=== PATIENT | male | born 1940 | race Caucasian/White ===

== ENCOUNTER 2022-11-15 11:25 | Outpatient (CLI) | payer OTHER, SELFPAY | END 2022-11-15 11:26 | disposition home or self-care (01) | LOC: OP CLINIC 11:26 | PROVIDERS: PCP Family Medicine; Visit Provider Internal Medicine Gastroenterology | DX: D50.9 Iron deficiency anemia, unspecified (principal); K29.70 Gastritis, unspecified, without bleeding; D17.5 Benign lipomatous neoplasm of intra-abdominal organs | CPT/HCPCS: 43239; 45378; 88305; 99153; J2250; J3010 ==

== ENCOUNTER 2023-11-15 00:58 | Emergency (ER) | payer OTHER, SELFPAY ==
[2023-11-15 01:02] VITALS: BP 114/76; PULSE 86; RESP 16; TEMP 36.4; O2SAT 95; BMI 29.2
--- NOTE | 2023-11-15 01:51 | CRLHL7_ITS ---
For Patients: As a result of the Century Cures Act, medical imaging exams and procedure reports are released immediately into your electronic medical record. You may view this report before your referring provider. If you have questions, please contact your health care provider. INDICATION: Trauma, fall. TECHNIQUE: CT head without contrast. COMPARISON: None. FINDINGS: CSF spaces: Proportionate prominence of the ventricles and sulci, reflecting moderate generalized cerebral volume loss. Brain parenchyma: The lopez-white differentiation is maintained. Patchy white matter low attenuation changes, nonspecific but likely reflecting chronic small vessel ischemic disease. No sign of mass, hemorrhage, or midline shift. Skull base and calvarium: The visualized paranasal sinuses and mastoid air cells demonstrate no acute or significant findings. Bilateral lens thinning. No skull fractures. IMPRESSION: No acute intracranial abnormality. Please note that all CT scans at this facility use dose modulation, iterative reconstruction, and/or weight-based dosing when appropriate to reduce radiation dose to as low as reasonably achievable. Dictated by Juan Luis Dc MD @ 11/15/2023 3:32:16 AM (Electronically Signed)
--- NOTE | 2023-11-15 01:51 | CRLHL7_ITS ---
For Patients: As a result of the Century Cures Act, medical imaging exams and procedure reports are released immediately into your electronic medical record. You may view this report before your referring provider. If you have questions, please contact your health care provider. INDICATION: Syncope. Back and right flank pain. TECHNIQUE: CT chest without contrast and CTA chest, abdomen, and pelvis acquired with 95 cc Isovue 370 IV contrast, dissection protocol. 2D and 3D MIP images for post-processing were performed and interpreted on an independent workstation, and 3D images were permanently archived. COMPARISON: None. FINDINGS: CHEST: Cardiovascular structures: The unenhanced images demonstrate no evidence of aortic intramural hematoma. There is no sign of aortic dissection. Fusiform dilatation of the descending thoracic aorta measuring 4.7 cm. Heart size is normal. Pulmonary artery is normal in caliber. Mediastinum and mckenzie: No mass or adenopathy. Lungs and pleura: Minimal dependent atelectasis. No acute infiltrates. Few scattered sub-6 mm pulmonary nodules. No pleural effusions or pneumothorax. Chest wall and axilla: No mass or adenopathy. Bones: Degenerative changes. ABDOMEN AND PELVIS: Liver: Unremarkable. Gallbladder and bile ducts: Unremarkable. Spleen: Unremarkable. Adrenal glands: Unremarkable. Pancreas: Unremarkable. Kidneys: Left renal cyst. No stones or hydronephrosis. GI tract: Unremarkable. Lymph nodes: Unremarkable. Vascular structures: Unremarkable. Miscellaneous: Fat containing inguinal hernias. No free air or significant free fluid. Pelvic organs: Mild prostatomegaly. Bones: Degenerative changes. IMPRESSION: 1. Descending thoracic aortic aneurysm measuring 4.7 cm. 2. No evidence of aortic dissection or intramural hematoma. 3. No acute abnormality of the chest, abdomen, or pelvis. Please note that all CT scans at this facility use dose modulation, iterative reconstruction, and/or weight-based dosing when appropriate to reduce radiation dose to as low as reasonably achievable. Dictated by Juan Luis Dc MD @ 11/15/2023 3:42:56 AM (Electronically Signed)
--- NOTE | 2023-11-15 01:51 | CRLHL7_ITS ---
For Patients: As a result of the Century Cures Act, medical imaging exams and procedure reports are released immediately into your electronic medical record. You may view this report before your referring provider. If you have questions, please contact your health care provider. INDICATION: Trauma, fall. TECHNIQUE: CT cervical spine without contrast. COMPARISON: None. FINDINGS: Vertebrae: Straightening of the normal cervical lordosis, which may be due to muscle spasm or positioning. Degenerative trace anterolisthesis C3 on C4 and C4 on C5. There are no fractures or suspicious bony lesions. Discs and facet joints: There are degenerative disc changes most severe at C6-C7. There are multilevel degenerative changes in the facets. Extraspinal findings: Paraspinous soft tissues are unremarkable. IMPRESSION: 1. No acute fracture or traumatic subluxation of the cervical spine. 2. Multilevel degenerative spondylosis. Please note that all CT scans at this facility use dose modulation, iterative reconstruction, and/or weight-based dosing when appropriate to reduce radiation dose to as low as reasonably achievable. Dictated by Juan Luis Dc MD @ 11/15/2023 3:35:24 AM (Electronically Signed)
--- NOTE | 2023-11-15 02:06 | ED.GENADULT ---
HPI - General Adult General Date Seen: 11/15/23 Chief complaint: Fall/Minor Trauma Stated complaint: fall in bathroom, laceration back of head Time Seen by Provider: 11/15/23 01:27 History of Present Illness HPI narrative: this is an 83-year-old gentleman who presents to the ER today from his home with his . History is obtained in part from the patient, but since he is a man a very few words, is somewhat mentum by his . He has a past medical history of a recently diagnosed aortic aneurysm (without rupture) and a recent diagnosis of high cholesterol. He has a history of hearing loss and uses hearing aids. He is on atorvastatin, recently started, sildenafil for pulmonary hypertension, vitamins for his ups, but no other meds. No blood thinners. He does note that he was sick with a recent respiratory illness and cough for a couple of weeks that ended about a week ago. He is back to his normal state of health for the past several days. He has not had any ongoing sore throat, nasal congestion, cough, trouble breathing, nausea, vomiting, diarrhea, fever, or other symptoms. He has had normal appetite, normal intake, and normal behavior for the past several days. His notes that he always works hard to drink plenty of fluids and does not think he is dehydrated today. He was in the bathroom tonight at about midnight going to the bathroom. He was urinating. He does know what happened but he fell. was not with him but she heard a very loud Bang when he fell. She came to check him. He was on the floor the bathroom and had [facility] The contents inside the cabinet were in disarray because of the impact. He was initially conscious but when she tried to help him up he had a spell lasting less than a minute where he blacked out and was unresponsive. No seizure activity. He came to abruptly and was not confused. No postictal symptoms. since waking up he says he feels fine. His made him come in because he has a laceration on the occiput of his head. He also complains of some pain in the right flank/ right side of his low back. She notes that he fell into a fairly small space in the bathroom that his arms and legs were bent and fairly odd angles. It looks like he probably blacked out. He does not recall any antecedent chest pain, palpitations, shortness of breath, headache or any other symptoms leading up to the fall. He thinks he can remember falling and hitting the cabinet. He does not remember details after that. based on the circumstances, we do not think that he tripped, but we do not really know how he fell. He does have a mild headache. He has mild pain in his low back and mild achiness in both of his knees. No other complaints. No shortness of breath. No chest pain. no palpitations. Records through [facility] link CT angio chest 11/07/2023 FINDINGS: There is too much motion in the ascending aorta and aortic root to evaluate for a dissection. There is a small ascending aortic aneurysm measuring approximately 4.4 cm at the level of the main pulmonary artery. The transverse thoracic aorta is normal in caliber. The proximal descending thoracic aorta is also mildly aneurysmal measuring 4.4 cm. There is heterogeneous low-attenuation wispy debris anteriorly, which appears to be related to nonuniform contrast opacification. Medially in the more distal descending thoracic aorta, there is some mural thrombus. Inadequate opacification of the celiac artery, SMA and renal arteries. The proximal neck arteries appear patent. ? No central pulmonary artery embolism. No pericardial effusion or cardiomegaly. The thyroid and neck base appear unremarkable. No axillary, mediastinal or hilar lymphadenopathy. Cyst in the left kidney. Suboptimal evaluation of the lung parenchyma given significant motion artifact. There are mildly prominent lymph nodes in the right hilar and infrahilar peribronchial tissues, borderline enlarged measuring up to 1 cm in short axis. There is some volume loss pressure, with posterior ground-glass opacity, also limiting evaluation. Atelectasis also around the aorta. No acute-appearing focal airspace consolidation. ? IMPRESSION: 1. Mild ascending and proximal descending thoracic aortic aneurysm. 2. Low lung volumes, poorly evaluated lung parenchyma, and borderline enlarged right hilar and infrahilar lymph nodes. 3. No central pulmonary embolism. Related Data Home Medications Medication Instructions Recorded Confirmed atorvastatin 20 mg tablet 20 mg PO QPM 11/15/23 11/15/23 Allergies Allergy/AdvReac Type Severity Reaction Status Date / Time No Known Drug Allergies Allergy Verified 11/15/23 01:10 PFSH PFS Social History Non-prescribed substance use: denies use Exam Narrative: Exam Narrative: Constitutional: Appears well-developed and well-nourished. Alert. Conversant. Non toxic. HENT: Head: No depressed skull fracture, Racco[place] Eyes, Burrell's sign, or hemotympanum. Face normal. TMs normal There is a stellate laceration on the occiput of the scalp measuring[] cm total length. mild tenderness around the laceration without any palpable skull fracture or underlying hematoma. No visible foreign body. Nose: Nose normal. Mouth/Throat: Oral mucosa is clear and moist. no trismus. Pharynx normal. Tonsils symmetric. No tonsillar enlargement, erythema, or exudate. Eyes: Conjunctivae normal. EOM normal. Pupils equal, round, and reactive to light. No scleral icterus. Neck: Mild tenderness at the upper portion of the C-spine around the laceration. No definite bony crepitus or step-off.Normal range of motion. Neck supple. No tracheal deviation present. Cardiovascular: Normal rate, regular rhythm. No gallop. No friction rub. No murmur heard. Symmetric radial artery pulses Pulmonary/Chest: Effort normal. No stridor. No respiratory distress. No wheezes. No rales. No rhonchi . Very mild right lower rib and right flank tenderness. Abdominal: Soft. Bowel sounds normal. No distension. No mass. No tenderness. No rebound. No guarding. Musculoskeletal: No midline thoracic or lumbar spine tenderness or step-off. He is tender over the right flank. No bruising or abrasion there. RUE: Normal range of motion. No tenderness. No deformity LUE: Normal range of motion. No tenderness. No deformity RLE: Normal range of motion. No edema. No tenderness. No deformity LLE: Normal range of motion. No edema. No tenderness. No deformity Neurological: Alert and oriented to person, place, and time. Normal strength. CN II-VII intact. No sensory deficit. GCS eye subscore is 4. GCS verbal subscore is 5. GCS motor subscore is 6. Normal coordination Skin: Skin is warm and dry. No rash noted. No pallor. Normal capillary refill. Psychiatric: Normal mood. Normal affect. Const: Vital Signs, click to edit/add: Vital Signs - 24 hr 11/15/23 01:02 11/15/23 03:04 Temperature 97.6 F Pulse Rate [Pulse Oximeter] 86 80 Respiratory Rate 16 16 Blood Pressure [Ri t Upper Arm] 114/76 148/83 H Pulse Oximetry 95 96 Oxygen Delivery Me thod Room Air Room Air Course Vital Signs Vital signs: Initial Vital Signs Temperature 97.6 F 11/15/23 01:02 Temperature Source Temporal Artery Scan 11/15/23 01:02 Pulse Rate 86 11/15/23 01:02 Respiratory Rate 16 11/15/23 01:02 Blood Pressure 114/76 11/15/23 01:02 Blood Pressure Mean 88 11/15/23 01:02 Blood Pressure Position Sitting 11/15/23 01:02 Pulse Oximetry 95 11/15/23 01:02 Oxygen Delivery Method Room Air 11/15/23 01:02 Vital Signs Temperature 97.6 F 11/15/23 01:02 Pulse Rate 86 11/15/23 01:02 Respiratory Rate 16 11/15/23 01:02 Blood Pressure 114/76 11/15/23 01:02 Pulse Oximetry 95 11/15/23 01:02 Oxygen Delivery Method Room Air 11/15/23 01:02 Temperature 97.6 F 11/15/23 01:02 Pulse Rate 80 11/15/23 03:04 Respiratory Rate 16 11/15/23 03:04 Blood Pressure 148/83 H 11/15/23 03:04 Pulse Oximetry 96 11/15/23 03:04 Oxygen Delivery Method Room Air 11/15/23 03:04 Medications Administered Medications: Discontinued Medications Generic Name Dose Route Start Last Admin Trade Name Freq PRN Reason Stop Dose Admin Acetaminophen 1,000 mg 11/15/23 03:30 11/15/23 03:43 Acetaminophen 500 Mg Tablet PO 11/15/23 03:31 1,000 mg ONCE ONE Administration Sodium Chloride 500 mls @ 500 mls/hr 11/15/23 01:51 11/15/23 03:42 0.9 % Sodium Chloride 500 Ml IV 11/15/23 02:50 500 mls/hr .Q1H ONE Administration Lidocaine/Epinephrine 20 ml 11/15/23 01:51 11/15/23 03:43 Lidocaine 1%-Epi 1:100,000 20 Ml INFILTRATI 11/15/23 01:52 20 ml ONCE ONE Administration Medical Decision Making MDM Narrative Medical decision making narrative: This patient presents for evaluation of a He fell while urinating in the bathroom tonight. Exact cause of fall is unclear but we are highly suspicious that this was a syncopal event.. A broad differential was considered. History provided suggests a benign cause of syncope. No murmurs . Initial ECG shows normal sinus rhythm and no dysrhythmogenic abnormality such as WPW, prolonged QT, Brugada syndrome, and no ischemia. No symptoms/findings concerning for cardiac ischemia or ACS. EKG nonischemic and troponin normal.. No headache or other neurologic symptoms to suggest subarachnoid , stroke . No reported seizure-like activity or postictal phase. He does have a recent diagnosis of a thoracic aortic aneurysm. He has right flank pain here in the ER. CT scan aortic /trauma protocol was obtained. manager monitoring while the patient here in the ER showed no dysrhythmia or ectopy. A broad differential diagnosis was considered including SVT, Atrial fibrillation, ventricular arrhythmia, thyroid disease, acute electrolyte abnormality, drugs/medications, medication side effect, anemia ( Patient has very mild , stable anemia), heart disease, PE, among others. discussed with the patient are concerned that this could have been a cardiac cause of syncope. Risk factors would include age, known vascular disease with aortic aneurysm (even though he does not have any known previous history of coronary disease ). We discussed options for admission for further care workup, cardiac monitoring, inpatient echo. Also discussed potential for outpatient workup. Patient and his strongly prefer outpatient workup. Therefore they will follow up primary care provider to consider ordering Zio patch an echo. Precautions for return to the ER reviewed. Questions answered. he did have a laceration at the base of his skull/occipital scalp/ upper neck. It was repaired as noted above. It was fairly still a but came together nicely with simple interrupted stitches. Patient is up-to-date on tetanus. It is a clean, non contaminated wound. No visible foreign body or its of within splinters. Discussed wound care, infection precautions, need for follow-up for suture removal in 6-7 days ( next Tuesday). Precautions for return to the ER or follow-up reviewed. with signs of head injury were concerned about possible skull fracture or intracranial injury. Head CT is obtained and is fortunately normal. C-spine CT also normal. He did have pain in his right flank from the fall. Differential air included traumatic injury such as kidney injury, musculoskeletal pain, flank bruising. Also consider nontraumatic causes of flank pain such as rupture ring aortic aneurysm. With CT chest/ abdomen pelvis is obtained. It does demonstrate previously known aortic aneurysm without any signs of rupture or dissection. No other acute traumatic injury Or internal bleeding noted on CT. Urinalysis normal.. Suspect that is flank pain probably is musculoskeletal in nature. Lab Data Labs: Lab Results 11/15/23 11/15/23 Range/Units 02:04 02:50 WBC 6.90 (4.50-11.00) K/uL RBC 4.17 L (4.30-5.90) m/uL Hgb 12.8 L (13.5-17.5) gm/dL Hct 39.1 (37.0-53.0) % MCV 94 (80-100) fL MCH 31 (26-34) pg MCHC 33 (32-36) gm/dL RDW Coeff of Tonya 13.4 (11.5-15.5) % Plt Count 217 (140-440) K/uL Neut % (Auto) 69.9 (42.0-72.0) % Lymph % (Auto) 19.0 L (20-44) % Cross % (Auto) 8.1 (0.0-11.0) % Eos % (Auto) 2.3 (0.0-7.0) % Baso % (Auto) 0.4 (0.0-3.0) % Neut # (Auto) 4.82 (1.7-7.0) K/uL Lymph # (Auto) 1.30 (0.90-2.90) K/uL Cross # (Auto) 0.60 (0.00-0.90) K/UL Eos # (Auto) 0.16 (0.00-0.50) K/uL Baso # (Auto) 0.03 (0.00-0.30) K/uL Abs Immat Gran (auto) 0.02 (0.00-0.30) K/uL Imm/Tot Granulo (auto) 0.3 % Sodium 140 (135-149) mmol/L Potassium 4.3 (3.6-5.1) mmol/L Chloride 106 (96-114) mmol/L Carbon Dioxide 24 (20-32) mmol/L Anion Gap 10 (7-15) mEq/L BUN 22 (7-30) mg/dL Creatinine 1.2 (0.5-1.5) mg/dL Estimated Creat Clear 51.19 Estimated GFR 60 ml/min Glucose 116 H (60-115) mg/dL Lactate 1.1 (0.5-1.9) mmol/L Calcium 9.3 (8.4-10.6) mg/dL Troponin I < 0.01 L (0.01-0.04) ng/mL Urine Color Yellow (Yellow) Urine Appearance Clear (Clear) Urine pH 5.5 (5.0-8.5) Ur Specific [place] 1.010 (1.000-1.030) Urine Protein Negative (Negative) Urine Glucose (UA) Negative (Negative) Urine Ketones Negative (Negative) Urine Blood Negative (Negative) Urine Nitrite Negative (Negative) Urine Bilirubin Negative (Negative) Urine Urobilinogen 0.2 (0.2-1.0) Ur Leukocyte Esterase 1+ A (Negative) Urine RBC 0-2 (0-2) Urine WBC 2-5 (0-5) Ur Squamous Epith Cells Few (None-Few) Amorphous Sediment Few A (None) Urine Bacteria Few A (None) Imaging Data CT Chest/Ab/Pelvis: Attestation: I have reviewed the pertinent imaging results. Radiologist's impression: IMPRESSION: No acute cardiopulmonary abnormality. CT scan - head: Attestation: I have reviewed the pertinent imaging results. Radiologist's impression: IMPRESSION: No acute intracranial abnormality. CT C spine: Attestation: I have reviewed the pertinent imaging results. Radiologist's impression: IMPRESSION: 1. No acute fracture or traumatic subluxation of the cervical spine. 2. Multilevel degenerative spondylosis. ECG Data Attestation: I personally reviewed and interpreted this ECG as follows: Interpretation: Normal sinus rhythm rate 75 OK 156 QRS axis normal axis ST segment/T wave: no ST segment elevation or depression QTc: 444. No Brugada syndrome. No [id number]. Discharge Plan Discharge Clinical Impression: Acute flank pain, Syncope, Laceration of scalp Patient Disposition: Home, Self-Care Condition: Stable Instructions: Laceration (ED), Syncope (DC) Additional Instructions: please follow-up with your regular doctor within 6-7 days to remove the stitches in your scalp. If you can get him with your regular doctor, come back to the urgent care or ER to have the stitches removed. Clean the wound gently once per day. Apply antibiotic ointment every day. Monitor for signs of infection such as redness, swelling or pus. If you have any concerns for infection or other problem, come back to the ER right away. If you have any further dizzy spells or fainting spells return to the ER immediately. As we discussed, it is not clear based on your workup why you fell tonight. We are concerned that this may have been a cardiac arrhythmia or other heart problem. Please follow-up with your doctor to have further testing with an outpatient heart monitor and echocardiogram. Prescriptions: No Action atorvastatin 20 mg tablet 20 mg PO QPM Follow Up/Referrals: Jose Francisco Echavarria MD [Primary Care Provider] - Stand Alone Forms: [facility] Info Instructions Procedures Laceration Occipital scalp/posterior neck: Verification/time out: correct patient and correct site Site: scalp ( is a somewhat stellate laceration shaped like an inverted T or an [place]. Total length approximately 3 cm.) Description: stellate Depth: simple, single layer Local Anesthetic: lidocaine 1% and with epi Amount of anesthesia used (mL): 5 Skin layer closed with: nylon Size (cm): 5-0 Number of sutures: 6 Technique: simple, interrupted
[2023-11-15 02:08] LABS: Lactate* 1.1 mmol/L (0.5-1.9)
[2023-11-15 02:11] LABS: Basophils Absolute Auto 0.03 K/uL (0.00-0.30); Basophils Percent Auto 0.4 % (0.0-3.0); Eosinophils Absolute Auto 0.16 K/uL (0.00-0.50); Eosinophils Percent Auto 2.3 % (0.0-7.0); Hematocrit 39.1 % (37.0-53.0); Hemoglobin* 12.8 gm/dL (13.5-17.5); Immature Granulocytes Abs Auto 0.02 K/uL (0.00-0.30); Immature Granulocytes Pct Auto 0.3 %; Mean Corpuscular HGB Conc 33 gm/dL (32-36); Mean Corpuscular Hemoglobin 31 pg (26-34); Mean Corpuscular Volume 94 fL (80-100); Monocytes Percent Auto 8.1 % (0.0-11.0); Neutrophils Absolute Auto 4.82 K/uL (1.7-7.0); Neutrophils Percent Auto 69.9 % (42.0-72.0); Platelet Count* 217 K/uL (140-440); RDW Coefficient of Variation % 13.4 % (11.5-15.5); Red Blood Count 4.17 m/uL (4.30-5.90)
[2023-11-15 02:15] LABS: Slide Review Reflex No
[2023-11-15 02:22] LABS: Chloride* 106 mmol/L (96-114)
[2023-11-15 02:23] LABS: Potassium* 4.3 mmol/L (3.6-5.1); Sodium* 140 mmol/L (135-149)
[2023-11-15 02:25] LABS: Creatinine* 1.2 mg/dL (0.5-1.5); Est. Creatinine Clearance* 51.19; Estimated Glomerular Filt Rate 60 ml/min
[2023-11-15 02:26] LABS: Anion Gap 10 mEq/L (7-15); Blood Urea Nitrogen* 22 mg/dL (7-30); Calcium* 9.3 mg/dL (8.4-10.6); Carbon Dioxide* 24 mmol/L (20-32); Glucose* 116 mg/dL (60-115)
[2023-11-15 02:38] LABS: Troponin I* < 0.01 ng/mL (0.01-0.04)
[2023-11-15 03:04] VITALS: BP 148/83; PULSE 80; RESP 16; O2SAT 96
[2023-11-15 03:04] LABS: Appearance Urine Clear (Clear); Bilirubin Urine Negative (Negative); Blood Urine Negative (Negative); Color Urine Yellow (Yellow); Glucose Urine Negative (Negative); Ketones Urine Negative (Negative); Leukocyte Esterase Urine 1+ (Negative); Nitrite Urine Negative (Negative); Protein Urine Negative (Negative); Urobilinogen Urine 0.2 (0.2-1.0); pH Urine 5.5 (5.0-8.5)
[2023-11-15 03:09] LABS: Amorphous Sediment Urine Few; Bacteria Urine Few; RBC Urine 0-2 (0-2); Squamous Epithelial Cell Urine Few (None-Few)
[2023-11-15] MEDS: 0.9 % SODIUM CHLORIDE 500 ML 500 ML IV (03:42)
[2023-11-15] MEDS: ACETAMINOPHEN 500 MG TABLET 1000 MG PO (03:43)
== END 2023-11-15 04:40 | disposition home or self-care (01) ==
PROVIDERS: Emergency Provider Emergency Medicine; PCP Family Medicine
DX: S01.01XA Laceration without foreign body of scalp, initial encounter (principal); R55 Syncope and collapse; R10.9 Unspecified abdominal pain; W22.8XXA Striking against or struck by other objects, initial encounter
CPT/HCPCS: 12002; 36415; 70450; 71275; 72125; 74174; 80048; 81001; 83605; 84484; 85025; 87086; 93005; 99284; 99285; A9270; J7030; Q9967